=== PATIENT | female | born 1995 | race Caucasian/White ===

== ENCOUNTER 2022-11-15 23:57 | Emergency (ER) | payer SELFPAY ==
[2022-11-16 00:03] VITALS: BP 132/79; PULSE 75; RESP 18; TEMP 36.3; O2SAT 100
[2022-11-16 00:20] LABS: Basophils Percent Auto 0.4 % (0.2-1.2); Eosinophils Absolute Auto 0.2 K/mm3 (0-0.3); Eosinophils Percent Auto 2.7 % (0-4.4); Hematocrit 37.9 % (37.0-47.0); Hemoglobin 12.2 g/dL (12.0-15.0); Immature Granulocyte Absolute 0.01 K/mm3 (0.00-0.031); Immature Granulocyte Percent A 0.1 % (0-0.5); Lymphocytes Absolute Auto 2.18 K/mm3 (0.9-3.2); Lymphocytes Percent Auto 30.7 % (18.3-44.2); Mean Corpuscular HGB Conc 32.2 g/dl (32-36); Mean Corpuscular Hemoglobin 27.4 pg (26-34); Monocytes Absolute Auto 0.4 K/mm3 (0.1-0.6); Monocytes Percent Auto 5.8 % (2.6-8.5); Neutrophils Absolute Auto 4.3 K/mm3 (1.3-6.7); Neutrophils Percent Auto 60.3 % (45.5-73.1); Platelet Count Result 314 k/mm3 (150-375); Red Blood Count 4.46 M/mm3 (4.2-5.4); Red Cell Distribution Width 13.3 % (11.5-14.5); White Blood Count 7.1 K/mm3 (4.5-10.0)
[2022-11-16 00:41] LABS: Alanine Aminotransferase 21 U/L (6-35); Albumin Level 4.1 g/dL (3.5-5.1); Alkaline Phosphatase 74 U/L (38-126); Anion Gap 7 mmol/L (8-16); Aspartate Amino Transferase 17 U/L (14-36); Bilirubin,Total 0.3 mg/dL (0.2-1.3); Blood Urea Nitrogen 5 mg/dL (7-17); Calcium 8.7 mg/dL (8.4-10.2); Carbon Dioxide 22 mmol/L (22-30); Chloride 105 mmol/L (98-107); Estimated CRCL calculation 171 ml/min; Estimated Glomerular Filt Rate > 60; Glucose 104 mg/dL (65-110); Lipase 62 U/L (23-300); Sodium 134 mmol/L (137-145)
[2022-11-16 01:15] VITALS: BP 113/82; PULSE 70; RESP 16; O2SAT 97
--- NOTE | 2022-11-16 01:20 | PC.NURSE ---
Pt states she was seen in another ED on 11/08 for similar s/s and given zofran, which she states helped with vomiting. Pt states she recently ran out. Reports taking tylenol at home for headache without relief.
[2022-11-16 01:37] LABS: Appearance Urine Clear (Clear); Bilirubin Urine Negative (Negative); Blood Urine Negative (Negative); Color Urine Yellow (Yellow); Glucose Urine UA Negative (Negative); Ketones Urine Trace mg/dL (Negative); Leukocyte Esterase Ur Negative LEU/UL (Negative); Nitrate Urine Negative (Negative); Protein Urine Negative (Negative); Specific Grav Ur 1.014 (1.001-1.035); Urobilinogen Urine 0.2 mg/dL (<2.0)
[2022-11-16 01:41] LABS: Add Urine Microscopic? NO
[2022-11-16] MEDS: METOCLOPRAMIDE HCL INJ 10 MG/2 ML VIAL IV PUSH (01:45)
[2022-11-16] MEDS: SODIUM CHLORIDE 0.9% IV 1,000 ML 999 ML IV CONT (01:45)
[2022-11-16] MEDS: diphenhydrAMINE HCl INJ 50 MG/ML VIAL IV PUSH (01:45)
--- NOTE | 2022-11-16 02:39 | ED.GENADULT ---
HPI - General Adult General Chief complaint: Nausea/Vomiting/Diarrhea Stated complaint: headache, lower BP, vomiting Time Seen by Provider: 11/16/22 01:38 History of Present Illness HPI narrative: Patient is a 26-year-old female who presents the emergency department with chief complaint of nausea vomiting and headache. The patient reports that she is approximately 12 weeks and reports that she has been having problems with nausea and vomiting throughout this and reports that she started having a headache that goes to her eyes. Patient reports that she has been having difficulty keeping things down reports that she has seen a doctor during this but does not have an established OB yet patient reports that she is also had an ultrasound of the that confirmed an IUP. Related Data Allergies Allergy/AdvReac Type Severity Reaction Status Date / Time No Known Allergies Allergy Verified 11/16/22 00:02 Review of Systems Review of Systems: A 10 system review of systems was completed on the patient and is negative except for what is stated in the HPI. Nursing and ancillary documentation was reviewed. Exam Narrative: GENERAL: Well-appearing, well-nourished, and in no acute distress. HEAD: Normocephalic, atraumatic. EYES: PERRLA and EOMI. ENT: Nares clear, no rhinorrhea or epistaxis. Mucous membranes moist. NECK: Supple. CHEST: Clear to auscultation. No respiratory distress. HEART: Regular rate and rhythm. No murmur heard. Normal peripheral pulses. ABDOMEN: Soft, nontender, nondistended, normal active bowel sounds. EXTREMITIES: Normal range of motion. No edema. SKIN: Warm, dry, no rash. NEURO: No focal deficits. Alert and oriented x3. PSYCH: Normal mood and affect. Course Vital Signs Vital signs: Vital Signs Temperature 36.3 C L 11/16/22 00:03 Pulse Rate 75 11/16/22 00:03 Respiratory Rate 18 11/16/22 00:03 Blood Pressure 132/79 11/16/22 00:03 Pulse Oximetry 100 11/16/22 00:03 Oxygen Delivery Room Air 11/16/22 00:03 Temperature 36.3 C L 11/16/22 00:03 Pulse Rate 67 11/16/22 03:45 Respiratory Rate 16 11/16/22 03:45 Blood Pressure 108/69 11/16/22 03:20 Pulse Oximetry 99 11/16/22 03:45 Oxygen Delivery Room Air 11/16/22 00:03 Medical Decision Making MDM Narrative Medical decision making narrative: Differential diagnosis includes hyperemesis gravidarum, dehydration, electrolyte abnormality, Bedside ultrasound was performed by me which showed an intrauterine with good cardiac activity Laboratory studies were obtained that showed normal CBC normal CMP urinalysis showed trace ketones Patient was had presented with a wrapper of her prescription for Zofran that she received in [place] the patient like to have a prescription for additional Zofran Vital Signs Vital Signs: Vital Signs Temperature 36.3 C L 11/16/22 00:03 Pulse Rate 75 11/16/22 00:03 Respiratory Rate 18 11/16/22 00:03 Blood Pressure 132/79 11/16/22 00:03 Pulse Oximetry 100 11/16/22 00:03 Oxygen Delivery Room Air 11/16/22 00:03 Temperature 36.3 C L 11/16/22 00:03 Pulse Rate 67 11/16/22 03:45 Respiratory Rate 16 11/16/22 03:45 Blood Pressure 108/69 11/16/22 03:20 Pulse Oximetry 99 11/16/22 03:45 Oxygen Delivery Room Air 11/16/22 00:03 Lab Data 11/16/22 00:12 11/16/22 00:12 Labs: Lab Results 11/16/22 11/16/22 Range/Units 00:12 01:28 WBC 7.1 (4.5-10.0) K/mm3 RBC 4.46 (4.2-5.4) M/mm3 Hgb 12.2 (12.0-15.0) g/dL Hct 37.9 (37.0-47.0) % MCV 85.0 (80-100) fl MCH 27.4 (26-34) pg MCHC 32.2 (32-36) g/dl RDW 13.3 (11.5-14.5) % Plt Count 314 (150-375) k/mm3 MPV 11.0 H (7.4-10.4) fl Immature Gran % (Auto) 0.1 (0-0.5) % Neut % (Auto) 60.3 (45.5-73.1) % Lymph % (Auto) 30.7 (18.3-44.2) % [place] % (Auto) 5.8 (2.6-8.5) %
[2022-11-16 03:20] VITALS: BP 108/69
[2022-11-16 03:45] VITALS: PULSE 67; RESP 16; O2SAT 99
== END 2022-11-16 04:11 | disposition home or self-care (01) ==
PROVIDERS: Emergency Provider Emergency Medicine
DX: O21.9 Vomiting of pregnancy, unspecified (principal); Z3A.12 12 weeks gestation of pregnancy
CPT/HCPCS: 36415; 80053; 81003; 83690; 85025; 96361; 96374; 96375; 99284; J1200; J2765; J7030